=== PATIENT | male | born 1960 | race Caucasian/White ===

== ENCOUNTER 2018-06-26 06:05 | Inpatient (IN) | payer BC ==
[2018-06-19 12:27] LABS: BASOPHILS # (AUTO) 0.1 X10'3 (0-0.2); BASOPHILS % (AUTO) 0.9 % (0-1); EOSINOPHILS # (AUTO) 0.1 X10'3 (0-0.9); EOSINOPHILS % (AUTO) 1.5 % (0-6); LYMPHOCYTES # (AUTO) 2.4 X10'3 (1.1-4.8); MEAN CORPUSCULAR HEMOGLOBIN 32.5 PG (27.0-31.0); MEAN CORPUSCULAR HGB CONC 34.1 % (33.0-36.5); MEAN CORPUSCULAR VOLUME 95.5 FL (78-98); MEAN PLATELET VOLUME 7.6 FL (7.4-10.4); MONOCYTES # (AUTO) 0.8 X10'3 (0-0.9); MONOCYTES % (AUTO) 8.8 % (2-12); NEUTROPHILS # (AUTO) 5.5 X10'3 (1.8-7.7); NEUTROPHILS % (AUTO) 61.8 % (42-75); PRE OP HEMATOCRIT 49.8 % (42.0-52.0); PRE OP PLATELET COUNT 287 X10'3 (140-440); RED BLOOD COUNT 5.21 X10'6 (4.70-6.10); RED CELL DISTRIBUTION WIDTH 13.4 % (11.5-14.5)
[2018-06-19 12:30] LABS: CLARITY,URINE CLEAR (Clear); COLOR,URINE YELLOW (Yellow); GLUCOSE, URINE NEGATIVE (Neg); KETONES,URINE NEGATIVE (Neg); LEUKOCYTE ESTERASE ,URINE NEGATIVE (Neg); NITRITES, URINE NEGATIVE (Neg); OCCULT BLOOD,URINE NEGATIVE (Neg); PH,URINE 6.5 (4.8-8.0); PROTEIN,URINE NEGATIVE (Neg); UROBILINOGEN,URINE 0.2 E.U/dL (0.2-1.0)
[2018-06-19 12:33] LABS: UA COLLECTION TYPE CLN CATCH MIDSTREAM
[2018-06-19 12:46] LABS: ALBUMIN 4.3 G/DL (3.4-5.0); ALBUMIN/GLOBULIN RATIO 1.1 (1.1-1.5); ALKALINE PHOSPHATASE 65 IU/L (46-116); BLOOD UREA NITROGEN 15 MG/DL (7-18); BUN/CREATININE RATIO 17.2 (5.4-32.0); CALCIUM 8.9 MG/DL (8.5-10.1); CHLORIDE 102 MMOL/L (99-107); CREATININE 0.87 MG/DL (0.60-1.10); PRE OP ALT 40 U/L (30-65); PRE OP ANION GAP 12 (8-16); PRE OP AST 18 U/L (10-37); PRE OP BILIRUB, TOTAL 0.7 MG/DL (0.0-1.0); PRE OP GLUCOSE 94 MG/DL (70-104); PRE OP POTASSIUM 4.1 MMOL/L (3.4-5.1); PRE OP SODIUM 139 MMOL/L (135-145); TOTAL PROTEIN 8.2 G/DL (6.4-8.2); eGFR 90 ML/MIN
[2018-06-26] VITALS (21 sets, daily range): BP systolic 88–135; BP diastolic 60–95
[~2018-06-26] VITALS: Ht 177.8 cm; Wt 109.8 kg
[~2018-06-26 06:05] MED LIST: ACET-2119 PO; ATOR20TA PO; FELO10TA3 PO; FEXO-124 PO; VALS80TA2 PO; acetaminophen 325mg tablet PO ONE; albuterol 2.5 MG/3 ML nebule NEB ONE; cefazolin/dext.iso 2gm/100 ML IV ONE; celeCOXIB 100mg capsule PO ONE; famotidine 20mg tablet PO ONE; gabapentin 300mg capsule PO ONE; metoclopramide 5 mg/ml inj IV ONE; oxyCODONE SR 10mg (sust. release) tab -2 tabs (20mg) PO ONE; ringers solution, lacted 1,000 ML IV SCH; tranexamic acid inj. 1,000 MG in normal saline 100 ML IV ONE; vancomycin inj 1,500 MG in normal saline 300ml IV soln IV ONE
[2018-06-26] MEDS ORDERED: diphenhydrAMINE 25mg capsule PO PRN ×2 (06:25)
[2018-06-26] MEDS ORDERED: HYDROcodone/acetaminophen 10/325mg tab PO PRN (06:25)
[2018-06-26] MEDS ORDERED: magnesium hydroxide 30ml (MOM) UD suspension PO PRN (06:25)
[2018-06-26] MEDS ORDERED: HYDROmorphone 1 mg/ml syringe IV PRN ×2 (06:25)
[2018-06-26] MEDS ORDERED: bisacodyl 10mg suppository rectal RC PRN (06:25)
[2018-06-26] MEDS ORDERED: ondansetron/PF 4mg/2ml inj IV PRN ×3 (06:25→10:15)
[2018-06-26] MEDS ORDERED: acetaminophen 325mg tablet PO PRN (06:25)
[2018-06-26] MEDS ORDERED: ketorolac trometh. 30mg/ml inj. ONE (06:58)
[2018-06-26] MEDS ORDERED: ROPIVAcaine 0.5% (5mg/ml) 30ml vial ONE (06:59)
[2018-06-26] MEDS ORDERED: vancomycin 1,000mg inj ONE (06:59)
[2018-06-26] MEDS ORDERED: cloNIDine hcl/PF 100mcg/ml inj ONE (06:59)
[2018-06-26] MEDS ORDERED: epiNEPHrine 1 mg/ml inj ONE (06:59)
[2018-06-26] MEDS ORDERED: morphine /PF 1mg/ml 10ml inj. ONE (08:53)
[2018-06-26] MEDS ORDERED: MIDAZolam 1mg/ml 10ml vial ONE (08:53)
[2018-06-26] MEDS ORDERED: fentaNYL/PF 50MCG/1 ML 2ML syringe ONE (08:54)
[2018-06-26] MEDS ORDERED: diphenhydrAMINE 50 mg/ml inj ONE (10:09)
[2018-06-26] MEDS ORDERED: ePHEDrine 50MG/ML INJ. ONE (10:09)
[2018-06-26] MEDS ORDERED: ringers solution, lacted 1,000 ML IV SCH (10:12)
[2018-06-26] MEDS ORDERED: naloxone 2mg/2ml inj 2 MG in normal saline 500ml IV soln 500 ML IV PRN (10:12)
[2018-06-26] MEDS ORDERED: meperidine/PF 25mg/ml syringe IV PRN ×3 (10:15)
[2018-06-26] MEDS ORDERED: morphine 4 MG/ML inj SYRINge IV PRN ×2 (10:15)
[2018-06-26] MEDS ORDERED: proCHLORperazine 10 MG/2 ml inj IV PRN (10:15)
[2018-06-26] MEDS ORDERED: diphenhydrAMINE 50 mg/ml inj IV PRN (10:15)
--- NOTE | 2018-06-26 10:30 | NUR ---
Received from OR via bed, accompanied by Anesthesiologist. Report received. Initial physical assessment done and recorded.
--- NOTE | 2018-06-26 11:38 | NUR ---
received report from espinoza mendoza in recovery
--- NOTE | 2018-06-26 11:50 | NUR ---
Discharge criteria met, report to receiving floor. Transferred to room in stable condition.
--- NOTE | 2018-06-26 12:00 | NUR ---
PT ARRIVED ON FLOOR IN ORTHO BED AWAKE
[2018-06-26] MEDS: gabapentin 300mg capsule PO SCH ×2 (12:05→20:21)
[2018-06-26] MEDS: potassium cl 20mEq in 1/2 NS 1,000 ML IV SCH ×2 (12:08→23:42)
[2018-06-26] MEDS ORDERED: NORMAL SALINE IV ONE (13:30)
[2018-06-26] MEDS ORDERED: TRANEXAMIC ACID IV ONE (13:30)
[2018-06-26] MEDS ORDERED: metoclopramide 5 mg/ml inj IV PRN (14:50)
[2018-06-26] MEDS: cefazolin/dext.iso 2gm/100ml 100 ML IV SCH ×2 (15:30→23:42)
--- NOTE | 2018-06-26 18:07 | NUR ---
GAVE REPORT TO HEATHER FUNK
--- NOTE | 2018-06-26 18:07 | NUR ---
Received report from Rachel ROMERO.
[2018-06-26] MEDS: ascorbic acid 500mg tablet PO SCH (20:21)
[2018-06-26] MEDS ORDERED: sennosides 8.6mg tablet PO SCH (21:00)
[2018-06-26] MEDS ORDERED: atorvastatin 20mg tablet PO SCH (21:00)
[2018-06-27 02:00] VITALS: BP 105/72
[2018-06-27] MEDS: HYDROcodone/acetaminophen 10/325mg tab PO PRN ×2 (02:17→06:00)
[2018-06-27] MEDS: potassium cl 20mEq in 1/2 NS 1,000 ML IV SCH (05:00)
[2018-06-27 06:00] VITALS: BP 118/76
[2018-06-27 06:07] LABS: ANION GAP 7 (8-16); CHLORIDE 106 MMOL/L (99-107); SODIUM 140 MMOL/L (135-145); TOTAL CARBON DIOXIDE 27.2 MMOL/L (24-32)
[2018-06-27 06:12] LABS: BASOPHILS % (AUTO) 0.5 % (0-1); EOSINOPHILS # (AUTO) 0.1 X10'3 (0-0.9); EOSINOPHILS % (AUTO) 1.4 % (0-6); HEMATOCRIT 38.8 % (42.0-52.0); HEMOGLOBIN 13.3 g/dl (14.0-17.9); LYMPHOCYTES # (AUTO) 2.4 X10'3 (1.1-4.8); LYMPHOCYTES % (AUTO) 27.6 % (21-51); MEAN CORPUSCULAR HEMOGLOBIN 33.1 PG (27.0-31.0); MEAN CORPUSCULAR HGB CONC 34.3 % (33.0-36.5); MEAN CORPUSCULAR VOLUME 96.6 FL (78-98); MEAN PLATELET VOLUME 7.7 FL (7.4-10.4); MONOCYTES # (AUTO) 0.9 X10'3 (0-0.9); MONOCYTES % (AUTO) 10.1 % (2-12); NEUTROPHILS # (AUTO) 5.2 X10'3 (1.8-7.7); NEUTROPHILS % (AUTO) 60.4 % (42-75); PLATELET COUNT 208 X10'3 (140-440); RED BLOOD COUNT 4.02 X10'6 (4.70-6.10); RED CELL DISTRIBUTION WIDTH 13.3 % (11.5-14.5); WHITE BLOOD COUNT 8.5 X10'3 (4.5-11.0)
[2018-06-27] MEDS ORDERED: multivitamins, therapeutics tablet PO SCH (08:00)
[2018-06-27] MEDS ORDERED: loratadine 10mg tablet PO SCH (08:00)
[2018-06-27] MEDS ORDERED: amLODIPine 5mg tablet PO SCH (08:00)
[2018-06-27] MEDS ORDERED: losartan 50mg tablet PO SCH (08:00)
[2018-06-27] MEDS: gabapentin 300mg capsule PO SCH (08:02)
[2018-06-27] MEDS: ascorbic acid 500mg tablet PO SCH (08:02)
[2018-06-27] MEDS ORDERED: aspirin 325mg tablet PO SCH (08:30)
--- NOTE | 2018-06-27 08:38 | NUR ---
Report given to Maggie ROMERO.
--- NOTE | 2018-06-27 08:48 | NUR ---
Received report from Ivy ROMERO
--- NOTE | 2018-06-27 10:48 | NUR ---
Patient was Discharged IV and tele was removed from patient. Patient was alert and oriented Patient agreed to all discharge orders.
== END 2018-06-27 10:40 | disposition home or self-care (01) | DRG 470 ==
LOC: PAS IN 06:05 → EDSTATUS 10:00 → ORTHO 4S 11:54
PROVIDERS: ADMIT Orthopaedic Surgery; ATTEND Orthopaedic Surgery
PROC: 0SR906Z Replacement of Right Hip Joint with Oxidized Zirconium on Polyethylene Synthetic Substitute, Open Approach (ICD-10-PCS; principal; 2018-06-27)
DX: M16.11 Unilateral primary osteoarthritis, right hip (principal); D62 Acute posthemorrhagic anemia; E78.5 Hyperlipidemia, unspecified; I10 Essential (primary) hypertension; Z88.8 Allergy status to other drugs, medicaments and biological substances
CPT/HCPCS: 36415; 71046; 72170; 80051; 80053; 81003; 85025; 85610; 85730; 86885; 86900; 86901; 87070; 97110; 97116; 97161; 97530; A4615; A7000; C1758; C1776; G0378; J0171; J0690; J0735; J1200; J1885; J2250; J2274; J2405; J2765; J2795; J3010; J3370; J7030; J7120